=== PATIENT | female | born 1985 | race American Indian/Alaskan Native ===

== ENCOUNTER 2016-12-06 17:59 | Emergency (ER) | payer SELFPAY ==
[2016-12-06] MEDS ORDERED: MOTRIN PO ONE (18:54)
[2016-12-06] MEDS ORDERED: BICILLIN L-A IM ONE (18:54)
[2016-12-06 18:56] VITALS: BP 137/89
--- NOTE | 2016-12-06 19:08 | Emergency Department Report ---
Entered by CHEMA PHOENIX, acting as scribe for MACK HARDWICK NP. ED ENT HPI - General Chief complaint: Sore Throat Stated complaint: POSS STREP THROAT Time Seen by Provider: 12/06/16 18:49 Source: patient Mode of arrival: Ambulatory Limitations: No Limitations - History of Present Illness Initial comments: 31 y/o female with sore throat beginning 2 days ago, aggravated by swallowing, no alleviating factors, constant since onset, severe in severity. Associated fever, chills, and diaphoresis but denies, rash or itching. Patient states she has previous episodes of strep throat with the same symptoms. PT took Tylenol last night without relief MD complaint: sore throat -: Gradual, days(s) (2) Location: throat Severity: moderate Severity scale (0 -10): 7 Quality: aching Consistency: constant Improves with: none Worsens with: swallowing, eating Associated Symptoms: fever, sore throat, other (chills). denies: toothache - Related Data Home Medications Medication Instructions Recorded Confirmed Last Taken No Known Home Medications [No 12/06/16 12/06/16 Unknown Reported Home Medications] Allergies Allergy/AdvReac Type Severity Reaction Status Date / Time No Known Allergies Allergy Verified 12/06/16 18:49 ED Dental HPI - General Stated complaint: POSS STREP THROAT Time Seen by Provider: 12/06/16 18:49 - Related Data Home Medications Medication Instructions Recorded Confirmed Last Taken No Known Home Medications [No 12/06/16 12/06/16 Unknown Reported Home Medications] Allergies Allergy/AdvReac Type Severity Reaction Status Date / Time No Known Allergies Allergy Verified 12/06/16 18:49 ED Review of Systems Comment: All other systems reviewed and negative Constitutional: chills, diaphoresis, fever Eyes: denies: eye pain, eye discharge ENT: throat pain. denies: ear pain, dental pain Respiratory: denies: cough, shortness of breath Cardiovascular: denies: chest pain Gastrointestinal: denies: abdominal pain, nausea, vomiting, diarrhea Genitourinary: denies: abnormal menses (lmp [id number]) Musculoskeletal: denies: back pain Skin: denies: rash Neurological: denies: headache, weakness, numbness ED Past Medical Hx - Past Medical History Hx Hypertension: No Hx Diabetes: No Hx Deep Vein Thrombosis: No Hx Renal Disease: No Hx Sickle Cell Disease: No Hx Seizures: No Hx Asthma: No - Medications Home Medications: Home Medications Medication Instructions Recorded Confirmed Last Taken Type No Known Home Medications [No 12/06/16 12/06/16 Unknown History Reported Home Medications] ED Physical Exam - General Limitations: No Limitations General appearance: alert - Head Head exam: Present: atraumatic, normocephalic - Eye Eye exam: Present: normal appearance, PERRL, EOMI Pupils: Present: normal accommodation - ENT ENT exam: Present: mucous membranes moist, normal external ear exam - Expanded ENT Exam Expanded Ear exam: Present: normal external inspection Mouth exam: Present: normal external inspection. Absent: drooling Teeth exam: Present: normal inspection Throat exam: Positive: tonsillar erythema (bilaterally), tonsillomegaly ( bilaterally), tonsillar exudate (bilaterally) - Neck Neck exam: Present: normal inspection, tenderness, full ROM, lymphadenopathy. Absent: meningismus - Respiratory Respiratory exam: Present: normal lung sounds bilaterally. Absent: respiratory distress, wheezes, chest wall tenderness, decreased breath sounds - Cardiovascular Cardiovascular Exam: Present: normal rhythm, tachycardia (mildy ). Absent: rubs , gallop - GI/Abdominal GI/Abdominal exam: Present: soft. Absent: distended, diminished bowel sounds - Extremities Exam Extremities exam: Present: normal inspection, full ROM, normal capillary refill. Absent: tenderness - Back Exam Back exam: Present: normal inspection, full ROM. Absent: tenderness, CVA tenderness (R), CVA tenderness (L), paraspinal tenderness, vertebral tenderness - Neurological Exam Neurological exam: Present: alert, oriented X3, normal gait - Psychiatric Psychiatric exam: Present: normal affect, normal mood - Skin Skin exam: Present: warm, dry, intact, normal color. Absent: rash ED Course Vital Signs 12/06/16 18:50 Temperature 100.0 F H Pulse Rate 113 H Respiratory 17 Rate Blood Pressure 137/89 O2 Sat by Pulse 98 Oximetry - Reevaluation(s) Reevaluation #1: 12/06/16 19:05 PT given Bicillin- LA to treat tonsillitis. PT also given Motrin for temp of 100 - Pulse Oximetry Interpretation Digit-Finger Initial Pulse Oximetry Readin Actions Taken: none ED Medical Decision Making - Differential Diagnosis viral pharyngitis, strep pharyngitis Critical Care Time: No ED Disposition Clinical Impression: Exudative pharyngitis Disposition: DC-01 TO HOME OR SELFCARE Is pt being admited?: No Does the pt Need Aspirin: No Condition: Stable Instructions: Strep Throat (ED), Tonsillitis (ED) Additional Instructions: Continue OTC Motrin/ Tylenol as needed for fever/ pain Referrals: GERMAN ARAIZA MD [Staff Physician] - 3-5 Days Forms: Work/School Release Form(ED) Time of Disposition: 19:08 This documentation as recorded by the ALBAN yu MATHEW,accurately reflects the service I personally performed and the decisions made by ,MACK HARDWICK, GENEVA.
== END 2016-12-06 19:43 | disposition home or self-care (01) ==
LOC: ED 17:59
DX: J02.9 Acute pharyngitis, unspecified (principal)
CPT/HCPCS: 96372; 99282; J0561

== ENCOUNTER 2017-04-06 21:13 | Emergency (ER) | payer SELFPAY ==
[2017-04-06 21:36] VITALS: BP 158/105
[2017-04-06 22:05] LABS: Basophils % (Auto) 0.5 % (0.0-1.8); Eosinophils % (Auto) 2.8 % (0.0-4.3); Hematocrit 35.7 % (30.3-42.9); Hemoglobin 12.1 gm/dl (10.1-14.3); Mean Corpuscular HGB Conc 34 % (30-34); Mean Corpuscular Hemoglobin 27 pg (28-32); Mean Corpuscular Volume 80 fl (79-97); Platelet Count 372 K/mm3 (140-440); Red Blood Count 4.44 M/mm3 (3.65-5.03); Red Cell Distribution Width 13.5 % (13.2-15.2); White Blood Count 7.4 K/mm3 (4.5-11.0)
[2017-04-06 22:17] LABS: Alanine Aminotransferase 15 units/L (7-56); Albumin 3.8 g/dL (3.9-5); Alkaline Phosphatase 58 units/L (35-129); Anion Gap 17 mmol/L; BUN/Creatinine Ratio 14; Bilirubin,Total < 0.20 mg/dL (0.1-1.2); Blood Urea Nitrogen 7 mg/dL (7-17); Calcium 8.8 mg/dL (8.4-10.2); Carbon Dioxide 25 mmol/L (22-30); Chloride 101.7 mmol/L (98-107); Glucose 101 mg/dL (65-100); Lipase 31 units/L (13-60); Potassium 3.6 mmol/L (3.6-5.0); Sodium 140 mmol/L (137-145); Total Protein 7.8 g/dL (6.3-8.2)
[2017-04-06 23:53] LABS: Bilirubin,Urine NEG (Negative); Blood,Urine NEG (Negative); Ketones,Urine NEG (Negative); Leukocyte Esterase,Urine NEG (Negative); Mucus,Urine FEW /HPF; Nitrite,Urine NEG (Negative); Protein,Urine <15 mg/dL mg/dL (Negative); Urobilinogen,Urine < 2.0 mg/dL (<2.0)
== END 2017-04-07 04:10 | disposition left against medical advice (07) ==
LOC: ED 21:13
DX: R10.9 Unspecified abdominal pain (principal); Z53.21 Procedure and treatment not carried out due to patient leaving prior to being seen by health care provider
CPT/HCPCS: 36415; 80053; 81001; 83690; 84703; 85025

== ENCOUNTER 2018-12-22 20:10 | Emergency (ER) | payer MEDICAID, OTHER ==
--- NOTE | 2018-12-22 20:39 | Event Note ---
ED Screening Note Date of service: 12/22/18 Time: 20:37 ED Screening Note: 33 y/o female lower abd pain with late menses. This initial assessment/diagnostic orders/clinical plan/treatment(s) is/are subject to change based on patients health status, clinical progression and re- assessment by fellow clinical providers in the ED. Further treatment and workup at subsequent clinical providers discretion. Patient/guardian urged not to elope from the ED as their condition may be serious if not clinically assessed and managed. Initial orders include:
[2018-12-22 21:53] LABS: Bacteria,Urine 1+ /HPF (Negative); Bilirubin,Urine NEG (Negative); Blood,Urine LG (Negative); Color,Urine Yellow (Yellow); Mucus,Urine FEW /HPF; Protein,Urine <15 mg/dL mg/dL (Negative)
[2018-12-22 21:55] LABS: RBC,Urine > 182.0 /HPF (0.0-6.0)
--- NOTE | 2018-12-22 23:21 | Emergency Department Report ---
ED Female HPI - General Chief complaint: Abdominal Pain Stated complaint: MISSED CYCLE/ABD PAIN Time Seen by Provider: 12/22/18 22:22 Source: patient Mode of arrival: Ambulatory Limitations: No Limitations - History of Present Illness Initial comments: Patient is a 33-year-old female who presents the emergency room with complaints of her cycle being 5 days late. She states her last menstrual cycle was November 19. She states she began having some light spotting yesterday. She states since being in emergency department she has had some vaginal bleeding. She has had some mild lower abdominal cramping but no pain. She denies any urinary symptoms, nausea, vomiting, diarrhea, fever. She does not report any vaginal discharge. She denies any past medical history. She has a past surgical history of tubal ligation. Patient states she was just concerned that she may be due to late menstrual cycle. - Related Data Home Medications Medication Instructions Recorded Confirmed Last Taken No Known Home Medications [No 12/06/16 12/06/16 Unknown Reported Home Medications] Allergies Allergy/AdvReac Type Severity Reaction Status Date / Time No Known Allergies Allergy Verified 12/06/16 18:49 ED Review of Systems ROS: Stated complaint: MISSED CYCLE/ABD PAIN Other details as noted in HPI Comment: All other systems reviewed and negative ED Past Medical Hx - Past Medical History Previous Medical History?: No Hx Hypertension: No Hx Diabetes: No Hx Deep Vein Thrombosis: No Hx Renal Disease: No Hx Sickle Cell Disease: No Hx Seizures: No Hx Asthma: No - Surgical History Past Surgical History?: Yes Additional Surgical History: TUMMY TUCK AND LIPO / TUBAL LIGATION - Social History Smoking Status: Never Smoker Substance Use Type: None - Medications Home Medications: Home Medications Medication Instructions Recorded Confirmed Last Taken Type No Known Home Medications [No 12/06/16 12/06/16 Unknown History Reported Home Medications] ED Physical Exam - General Limitations: No Limitations General appearance: alert, in no apparent distress - Head Head exam: Present: atraumatic, normocephalic - Eye Eye exam: Present: normal appearance, PERRL - ENT ENT exam: Present: mucous membranes moist - Respiratory Respiratory exam: Present: normal lung sounds bilaterally. Absent: respiratory distress, wheezes, rales, rhonchi, stridor, chest wall tenderness, accessory muscle use, decreased breath sounds, prolonged expiratory - Cardiovascular Cardiovascular Exam: Present: regular rate, normal rhythm, normal heart sounds. Absent: systolic murmur, diastolic murmur, rubs, gallop - GI/Abdominal GI/Abdominal exam: Present: soft, normal bowel sounds. Absent: distended, tenderness, guarding, rebound, rigid - Back Exam Back exam: Absent: CVA tenderness (R), CVA tenderness (L) - Neurological Exam Neurological exam: Present: alert, oriented X3 - Psychiatric Psychiatric exam: Present: normal affect, normal mood - Skin Skin exam: Present: warm, dry, intact ED Course Vital Signs 12/22/18 12/22/18 20:37 23:42 Temperature 97.9 F Pulse Rate 91 H 75 Respiratory 18 16 Rate Blood Pressure 173/99 Blood Pressure 150/96 [Left] O2 Sat by Pulse 99 100 Oximetry ED Medical Decision Making - Lab Data Lab Results 12/22/18 12/22/18 Range/Units 21:15 22:16 HCG, Quant < 2 (0-4) mIU/mL Urine Color Yellow (Yellow) Urine Turbidity Slightly-cloudy (Clear) Urine pH 6.0 (5.0-7.0) Ur Specific [place] 1.019 (1.003-1.030) Urine Protein <15 mg/dl (Negative) mg/dL Urine Glucose (UA) Neg (Negative) mg/dL Urine Ketones Neg (Negative) mg/dL Urine Blood Lg (Negative) Urine Nitrite Neg (Negative) Urine Bilirubin Neg (Negative) Urine Urobilinogen 2.0 (<2.0) mg/dL Ur Leukocyte Esterase Neg (Negative) Urine WBC (Auto) 5.0 (0.0-6.0) /HPF Urine RBC (Auto) > 182.0 (0.0-6.0) /HPF U Epithel Cells (Auto) 2.0 (0-13.0) /HPF Urine Bacteria (Auto) 1+ (Negative) /HPF Urine Mucus Few /HPF - Medical Decision Making Patient is a 33-year-old female who presents the emergency room with complaints of her cycle being 5 days late. She states her last menstrual cycle was November 19. She states she began having some light spotting yesterday. She states since being in emergency department she has had some vaginal bleeding. She has had some mild lower abdominal cramping but no pain. She denies any urinary symptoms, nausea, vomiting, diarrhea, fever. She does not report any vaginal discharge. She denies any past medical history. She has a past surgical history of tubal ligation. Patient states she was just concerned that she may be due to late menstrual cycle. VSS. no abd tenderness on exam. UA with RBCs otherwise normal. hcg quant is less than 2. advised pt that she is most likely currently experiencing her regular menstrual cycle. advised to please follow up with primary care doctor and [facility] in the next 2-3 days. Return to the emergency room for any new or worsening symptoms. Critical care attestation.: If time is entered above; I have spent that time in minutes in the direct care of this critically ill patient, excluding procedure time. ED Disposition Clinical Impression: Late menstruation Disposition: DC- TO HOME OR SELFCARE Is pt being admited?: No Does the pt Need Aspirin: No Condition: Stable Instructions: Menstruation (ED) Additional Instructions: Please follow up with primary care doctor and [facility] in the next 2-3 days. Return to the emergency room for any new or worsening symptoms. Referrals: [facility] [Outside] - 2-3 Days [facility] [Provider Group] - 2-3 Days GISEL NICHOLSON MD [Staff Physician] - 2-3 Days Time of Disposition: 23:20 Print Language: KAZAKH
[2018-12-22 23:43] VITALS: BP 150/96
== END 2018-12-22 23:42 | disposition home or self-care (01) ==
LOC: ED 20:10
DX: N92.5 Other specified irregular menstruation (principal)
CPT/HCPCS: 36415; 81001; 84702

== ENCOUNTER 2021-11-09 16:26 | Emergency (ER) | payer SELFPAY ==
[2021-11-09 19:52] VITALS: BP 185/95
== END 2021-11-10 00:53 | disposition left against medical advice (07) ==
LOC: ED 16:26
DX: R51.9 Headache, unspecified (principal); J02.9 Acute pharyngitis, unspecified; Z53.21 Procedure and treatment not carried out due to patient leaving prior to being seen by health care provider